=== PATIENT | female | born 1990 | race Caucasian/White ===

== ENCOUNTER 2020-07-09 14:25 | Emergency (ER) | payer BC, SELFPAY ==
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
[2020-07-09 14:32] VITALS: BP 147/94; PULSE 101; RESP 19; TEMP 36.5; O2SAT 100
[2020-07-09 14:36] LABS: Glucose Point of Care 121 (65-105)
[2020-07-09 14:38] VITALS: PULSE 94; O2SAT 100
[2020-07-09 14:40] VITALS: O2SAT 100
--- NOTE | 2020-07-09 14:43 | ECG_ITS ---
Measurements Intervals [place] Rate: 100 P: 74 MA: 137 QRS: 61 QRSD: 85 T: 44 QT: 325 QTc: 419 Interpretive Statements SINUS TACHYCARDIA POSSIBLE LEFT ATRIAL ENLARGEMENT MINIMAL Q WAVES- INFERIOR LEADS NONSPECIFIC T-WAVE ABNORMALITY- INFERIOR LEADS BASELINE ARTIFACT- I, II, III, AVR, AVL, AVF, V1, V4-V6 BORDERLINE ECG Electronically Signed On 07-09-2020 14:55:46 BUSINESS [employer]JECTS REPORT DEVELOPER by Christopher Diamond D.O.
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
[2020-07-09 15:04] LABS: Basophils Percent Auto 0.4 % (0.2-1.2); Eosinophils Absolute Auto 0.1 K/mm3 (0-0.3); Eosinophils Percent Auto 0.9 % (0-4.4); Hematocrit 43.8 % (37.0-47.0); Hemoglobin 14.7 g/dL (12.0-15.0); Immature Granulocyte Absolute 0.02 K/mm3 (0.00-0.031); Immature Granulocyte Percent A 0.3 % (0-0.5); Lymphocytes Absolute Auto 1.96 K/mm3 (0.9-3.2); Lymphocytes Percent Auto 25.5 % (18.3-44.2); Mean Corpuscular HGB Conc 33.6 g/dl (32-36); Mean Corpuscular Hemoglobin 30.9 pg (26-34); Mean Corpuscular Volume 92.2 fl (80-100); Monocytes Absolute Auto 0.6 K/mm3 (0.1-0.6); Monocytes Percent Auto 7.2 % (2.6-8.5); Neutrophils Absolute Auto 5.1 K/mm3 (1.3-6.7); Neutrophils Percent Auto 65.7 % (45.5-73.1); Platelet Count Result 256 k/mm3 (150-375); Red Blood Count 4.75 M/mm3 (4.2-5.4); Red Cell Distribution Width 12.3 % (11.5-14.5); White Blood Count 7.7 K/mm3 (4.5-10.0)
[2020-07-09 15:33] LABS: Alanine Aminotransferase 21 U/L (4-35); Albumin Level 4.4 g/dL (3.5-5.1); Alkaline Phosphatase 49 U/L (38-126); Anion Gap 11 mmol/L (8-16); Aspartate Amino Transferase 29 U/L (14-36); Bilirubin,Total 0.5 mg/dL (0.2-1.3); Blood Urea Nitrogen 17 mg/dL (7-17); Carbon Dioxide 30 mmol/L (22-30); Chloride 99 mmol/L (98-107); Estimated CRCL calculation 63 ml/min; Estimated Glomerular Filt Rate > 60; Glucose 114 mg/dL (65-105); Potassium 3.5 mmol/L (3.4-5.0); Sodium 140 mmol/L (137-145)
[2020-07-09 15:36] LABS: Lactic Acid Reflex 0.8 mmol/L (0.7-2.1)
[2020-07-09 16:26] LABS: Creatine Kinase 57 U/L (30-135)
[2020-07-09 17:01] LABS: Add Urine Microscopic? YES; Appearance Urine Clear (Clear); Bacteria Urine Trace /hpf; Bilirubin Urine Negative (Negative); Blood Urine 2+ (Negative); Color Urine Yellow (Yellow); Glucose Urine UA Negative (Negative); Ketones Urine Negative (Negative); Leukocyte Esterase Ur Negative LEU/UL (Negative); Mucus Urine Heavy /lpf; Nitrate Urine Negative (Negative); Protein Urine Negative (Negative); Specific Grav Ur 1.018 (1.001-1.035); Squamous Epithelial Cell Urine Few /hpf (Few); Urobilinogen Urine Negative mg/dL (<2.0)
[2020-07-09 17:03] LABS: Pregnancy On Board Control Positive; Urine Pregnancy Test Negative
[2020-07-09 17:14] LABS: Amphetamine Screen Urine Negative (Negative); Barbiturate Screen Urine Negative (Negative); Benzodiazepines Screen Urine Negative (Negative); Cannabinoid Screen Urine Negative (Negative); Cocaine Screen Urine Negative (Negative); Methadone Screen Urine Negative (Negative); Opiate Screen Urine Negative (Negative); Phencyclidine Screen Urine Negative (Negative)
[2020-07-09 18:10] VITALS: BP 113/72; PULSE 85; RESP 17; O2SAT 99
== END 2020-07-09 18:12 | disposition home or self-care (01) ==
PROVIDERS: Emergency Provider Emergency Medicine; PCP Physician Assistant
DX: R56.9 Unspecified convulsions (principal); R00.0 Tachycardia, unspecified; R94.31 Abnormal electrocardiogram [ECG] [EKG]
CPT/HCPCS: 36415; 70450; 80053; 80307; 81001; 81025; 82550; 82948; 83605; 85025; 87086; 87088; 93005; 99284

== ENCOUNTER 2020-07-20 06:39 | Outpatient (CLI) | payer BC, SELFPAY ==
--- NOTE | 2020-07-21 11:55 | WPDNEUROLOGY ---
Neurology EEG Report General Information Date of Study: 07/20/20 TEST eeg DIAGNOSIS seizures CONDITION OF RECORDING awake drowsy and sleep EEG NUMBER [id number] CLINICAL HISTORY patient reported she had an episode where she became dizzy and lightheaded, lost consciousness, and the witness reported that she convulsed for1-2 and lost control of bladder ,gives no history of seizures in the past EEG DESCRIPTION basic resting occipital frequency consists of large amount of well-organized medium voltage 8 to 10 hertz per 2nd alpha admixed with low-voltage 15 to 18 hertz per 2nd beta during drowsiness low-voltage beta activity seen diffusely. Photic dilation produced normal drive hyperventilation not done. Non paroxysmal. Nonfocal. Nonlateralizing. IMPRESSION Normal recall
== END 2020-07-20 06:40 | disposition home or self-care (01) ==
PROVIDERS: PCP Physician Assistant; Visit Provider Physician Assistant
DX: R56.9 Unspecified convulsions (principal)
CPT/HCPCS: 95816

== ENCOUNTER → 2020-07-20 14:08 | Outpatient (CLI) | payer BC, SELFPAY ==
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
[2020-07-20 14:29] LABS: Estimated Glomerular Filt Rate > 60
== END ==
PROVIDERS: PCP Physician Assistant; Visit Provider Physician Assistant
DX: R56.9 Unspecified convulsions (principal)
CPT/HCPCS: 70553; A9577